=== PATIENT | male | born 1990 | race Caucasian/White ===

== ENCOUNTER → 2019-11-18 17:37 | Outpatient (CLI) | payer MEDICAID, SELFPAY ==
[2019-11-20 08:40] LABS: Covid-19 Nasal PCR Sendout UK Not Detected
--- NOTE | 2019-11-20 18:38 | PC.NURSE ---
PTS IDENTITY VERIFIED AND RESULTS GIVEN
== END ==
PROVIDERS: Visit Provider Nurse Practitioner Family
DX: Z03.818 Encounter for observation for suspected exposure to other biological agents ruled out (principal)
CPT/HCPCS: U0003

== ENCOUNTER 2019-12-19 10:17 | Emergency (ER) | payer MEDICAID, SELFPAY ==
[2019-12-19 10:34] VITALS: BP 119/68; PULSE 72; RESP 19; TEMP 36.9; O2SAT 98; BMI 22.0
--- NOTE | 2019-12-19 10:45 | HMH.EDUTC ---
[facility] [place] Disposition Clinical Impression: Encounter for laboratory testing for COVID-19 virus Disposition: Home, Self-Care Condition on Discharge: Good Instructions: Preventing the Spread of Coronavirus Discharge Instructions Additional Instructions: *Monitor Temp, Over the counter Motrin or Tylenol as directed/as needed Tylenol every 4 hours and Motrin every 6 hours (as long as your family doctor has told you that you can take it) for fever or pain. and straight to ER if unable to lower temp less than 101.0 after medication given *Warm salt water gargles may help to soothe the throat *Throat Lozenges *Warm fluids like tea with honey may help to soothe the throat *Sleep elevated *Humidifier/Vaporizer *Flonase 2 sprays in each nostril daily but be aware that it may take 2-3 days before you notice improvement Your throat swab was sent for culture. Those results are typically sent to your primary care. Be sure to follow up in 2-3 days with your family doctor/primary care physician if no improvement so they can review those result and treat if necessary. If you don?t have a primary care doctor, I recommend you get one but in the mean time, you will have to return to a walk in clinic Follow up IMMEDIATELY for new or worsening symptoms or no Noticeable improvement over the next 48-72 hours. 911 for difficulty breathing or swallowing You was tested for today for COVID19 your test result should be back later this evening, you may call back later this evening to see if your test results are back and the result You was given a handout with instructions for Self Quarantine and Self isolation for while you wait on test results and what to do if they are positive Referrals: PCP,No [Primary Care Provider] - As needed Forms: Work/School Release Time of Disposition: 11:01 Medical Decision Making - Darinel Inquiry Pt receiving controlled substance: No Darinel was queried for this patient: No Vital Signs: 12/19/19 10:34 12/19/19 11:05 Temperature 98.4 F 98.4 F Temperature Source Oral Pulse Rate 72 Pulse Rate [Right Brachial] 72 Respiratory Rate 19 19 Blood Pressure 119/68 Blood Pressure [Right Arm] 119/68 Blood Pressure Mean [Right Arm] 85 Blood Pressure Source [Right Arm] Automatic Cuff Blood Pressure Position [Right Arm] Sitting 02 Sat by Pulse Oximetry 98 Oxygen Delivery Method Room Air [facility] [place] HPI - General Stated complaint: resp issues,low grade fever Time Seen by Provider: 12/19/19 10:45 Mode of Arrival: Ambulatory Source of Information: Patient Limitations: No Limitations Description of Symptoms (Recalled from Triage Doc. by RN): PATIENT C/O COUGH AND HEADACHE. HE IS REQUESTING A COVID TEST BECAUSE HIS GIRLFRIEND'S DAUGHTER'S TEACHER WAS POSITIVE HEENT Symptoms (Recalled from RN notes): Yes Resp Symptoms (Recalled from RN notes): Yes Skin Symptoms (Recalled from RN notes): No MS Symptoms (Recalled from RN notes): No Functional Status (Recalled from RN notes): WNL - History of Present Illness Provider Complaint: Patient states that last week his girlfriends daughter is in daycare and States that child came home with what they thought was a cold then the daycare informed them that a teacher tested positive States since then he has been having body aches, chills, sore throat and nasal congestion and feeling achy all over so he came in to get tested for COVID - Related Data Home Medications Medication Instructions Recorded Confirmed No Known Home Medications 12/19/19 12/19/19 Allergies Allergy/AdvReac Type Severity Reaction Status Date / Time amoxicillin [From Augmentin] Allergy Verified 12/19/19 10:38 clavulanic acid Allergy Verified 12/19/19 10:38 [From Augmentin] - Worker's Comp Is this a Worker's Comp case?: No [facility] History - Hepatitis A Screen Drug use history?: No High risk sexual behaviors?: No History of sexually transmitted infection?: No Currently employed?: No Childc
[2019-12-19 11:05] VITALS: BP 119/68; PULSE 72; RESP 19; TEMP 36.9; O2SAT 98
--- NOTE | 2019-12-19 15:57 | PC.NURSE ---
PT NOTIFIED OF POSITIVE COVID RESULT
== END 2019-12-19 11:08 | disposition home or self-care (01) ==
PROVIDERS: Emergency Provider Nurse Practitioner
DX: U07.1 COVID-19 (principal); Z88.1 Allergy status to other antibiotic agents
CPT/HCPCS: 99201; U0003

== ENCOUNTER 2022-08-24 21:41 | Emergency (ER) | payer OTHER, SELFPAY ==
[2022-08-24 21:51] VITALS: BP 134/88; PULSE 77; RESP 14; TEMP 36.8; O2SAT 99; BMI 18.2
--- NOTE | 2022-08-24 21:56 | CT_ITS ---
PROCEDURE INFORMATION: Exam: CT Abdomen And Pelvis With Contrast Exam date and time: 08/24/2022 10:38 PM Age: 32 years old Clinical indication: Abdominal pain; Additional info: Abd pain TECHNIQUE: Imaging protocol: Computed tomography of the abdomen and pelvis with contrast. Radiation optimization: All CT scans at this facility use at least one of these dose optimization techniques: automated exposure control; mA and/or kV adjustment per patient size (includes targeted exams where dose is matched to clinical indication); or iterative reconstruction. Contrast material: ISOVUE; Contrast volume: 75 ml; Contrast route: IV; REPORTING DATA: Count of CT and Cardiac NM exams in prior 12 months: This patient has received 0 known CTs and 0 known cardiac nuclear medicine studies in the 12 months prior to the current study. COMPARISON: No relevant prior studies available. FINDINGS: Liver: Normal. No mass. Gallbladder and bile ducts: Normal. No calcified stones. No ductal dilation. Pancreas: Normal. No ductal dilation. Spleen: Normal. No splenomegaly. Adrenal glands: Normal. No mass. Kidneys and ureters: Normal. No hydronephrosis. Stomach and bowel: Mild sigmoid wall thickening coronal image 1001/32 and axial image 3/73. Normal small bowel gas pattern. Prominent seminal vesicles axial image 3/80. Appendix: Normal appendix. Intraperitoneal space: Unremarkable. No free air. No significant fluid collection. Vasculature: Unremarkable. No abdominal aortic aneurysm. Lymph nodes: Unremarkable. No enlarged lymph nodes. Urinary bladder: Unremarkable as visualized. Reproductive: See Stomach and bowel finding. Bones/joints: Unremarkable. No acute fracture. Soft tissues: Unremarkable. IMPRESSION: 1. No free air or fluid or adenopathy. 2. No evidence for obstruction. 3. Mild sigmoid wall thickening. This could be further evaluated if clinically indicated with oral and or rectal contrast CT. 4. Normal appendix. 5. Normal small bowel gas pattern. 6. Prominent seminal vesicles . Recommend clinical correlation.
[2022-08-24 22:00] VITALS: BP 125/95; PULSE 93; O2SAT 98
[2022-08-24 22:01] LABS: Microscopic, Urine URINE MICROSCOPIC (MICROSCOPIC)
--- NOTE | 2022-08-24 22:01 | PC.NURSE ---
Dr. Rodriguez at
--- NOTE | 2022-08-24 22:02 | HMH.EDABDPAI ---
Discharge Plan Disposition Patient Disposition: Home, Self-Care Prescriptions Prescriptions: No Action No Known Home Medications Referrals Follow up/Referrals: Provider,Referral, MD [Primary Care Provider] - See instructions Clinical Impressions Clinical Impression: Acute flank pain Instructions Patient Instructions: DI for Flank Pain Discharge ED Provider: Jennifer (ED)Keon Abdominal Pain HPI General Chief Complaint: Abdominal Pain Stated Complaint: back pain Time Seen by Provider: 08/24/22 21:50 Mode of Arrival: Family Vehicle Source of Information: Patient and Medical Record Limitations: No Limitations Description of Symptoms (Recalled from ER Triage Doc. by RN): 32 yo male presents with cc abd pain that began suprapubic bilaterally about a month ago and that radiates up into his upper quadrants bilaterally, and now is wrapping around into my back on both sides . No previous history like this according to his report or mention of abd surgeries. Last bm approx 2 hours [employer] and normal. Denies any dysuria, hematuria. Nauseated. Denies vomiting. History of Present Illness HPI narrative: over the last few weeks has suprapubic pain and bilat back pain - no fever/rash or trauma - no hematuria - had colonoscopy a few months ago MD complaint: flank pain Onset (ago): week(s) Consistency: intermittent Location: suprapubic Severity: moderate Associated symptoms: nausea and chills Related Data Home Medications Medication Instructions Recorded Confirmed No Known Home Medications 12/19/19 08/24/22 Allergies Allergy/AdvReac Type Severity Reaction Status Date / Time amoxicillin [From Augmentin] Allergy Verified 12/19/19 10:38 clavulanic acid Allergy Verified 12/19/19 10:38 [From Augmentin] [facility] Disclaimer: The information contained in this section may have been updated after the patient was seen, as this information can be updated by other users. Social History Smoking Status: Unknown if ever smoked alcohol intake: never current occupational status: other Travel in the last 8 weeks: None ROS Obtained: Yes All systems reviewed & no additional complaints except as documented Physical Exam General General appearance: alert Head Head exam: normocephalic Eye Eye exam: Present PERRL and EOMI ENT ENT exam: Present mucous membranes moist Neck Neck exam: Present trachea midline Respiratory Respiratory exam: Present normal lung sounds bilaterally; Absent respiratory distress Cardiovascular Cardiovascular exam: Present regular rate Abdominal Exam Abdominal exam: Present soft; Absent tenderness, guarding or rebound Extremities Exam Extremities exam: Present full ROM Back Exam Back exam: Absent CVA tenderness (R) or CVA tenderness (L) Neurological Exam Neurological exam: Present alert, oriented X3 and CN II-XII intact; Absent motor sensory deficit Psychiatric Psychiatric exam: Present normal affect Skin Skin exam: Absent rash Medical Decision Making Medical Records Medical records reviewed: Yes I reviewed the patient's medical records. Darinel Inquiry Pt receiving controlled substance: No Vital Signs: 08/24/22 21:51 08/24/22 22:00 08/24/22 23:01 Temperature 98.2 F Temperature Source Oral Pulse Rate 93 H 64 Pulse Rate [Right Brachial] 77 Respiratory Rate 14 Blood Pressure 125/95 H 123/71 Blood Pressure [Right Arm] 134/88 Blood Pressure Mean [Right Arm] 103 Blood Pressure Source [Right Arm] Automatic Cuff Blood Pressure Position [Right Arm] Sitting 02 Sat by Pulse Oximetry 99 98 98 Oxygen Delivery Method Room Air Room Air Room Air 08/24/22 23:30 08/25/22 00:00 08/25/22 00:30 Temperature Temperature Source Pulse Rate 62 57 L 60 Pulse Rate [Right Brachial] Respiratory Rate Blood Pressure 105/63 L 103/66 L 104/70 L Blood Pressure [Right Arm] Blood Pressure Mean [Right Arm] Blood Pressure Source [Right Arm]
[2022-08-24 22:07] LABS: Appearance,Urine CLEAR (Clear); Bilirubin,Urine Negative (Negative); Blood, Urine 1+ (Negative); Color,Urine YELLOW (Yellow); Glucose,Urine (UA) Negative (Negative); Ketones,Urine Negative (Negative); Leukocyte Esterase,Urine Negative (Negative); Nitrate,Urine Negative (Negative); PH,Urine 5.5 (5.0-8.5); Protein,Urine Negative (Negative); Specific Gravity, Urine >= 1.030 (1.005-1.030); Urobilinogen,Urine 0.2 EU/dl (0.2)
[2022-08-24 22:09] LABS: Basophils % 0.5 % (0.1-2.0); Eosinophils % 0.4 % (0.1-12.0); Hematocrit 47.8 % (42.0-52.0); Hemoglobin 15.8 g/dL (14.1-18.0); Lymphocytes # 2.3 K/mm3 (0.7-4.5); Lymphocytes % 35.2 % (10-50); Mean Corpuscular HGB Conc 33.1 g/dL (31.8-35.4); Mean Corpuscular Hemoglobin 29.9 pg (27.0-31.2); Mean Corpuscular Volume 90.4 fl (80-94); Mean Platelet Volume 7.6 fl (7.4-10.4); Monocytes # 0.5 K/mm3 (0.1-1.0); Monocytes % 7.3 % (1.7-9.3); Neutrophils # 3.7 K/mm3 (1.8-7.8); Neutrophils % 56.5 % (37.0-80.0); Platelet Count 346 K/mm3 (142-424); Red Blood Count 5.29 M/mm3 (4.60-6.20); Red Cell Distribution Width 12.7 % (11.5-17.5); White Blood Count 6.6 K/mm3 (4.8-10.8)
[2022-08-24 22:10] LABS: Alanine Aminotransferase 29 U/L (12-78); Albumin/Globulin Ratio 1.7 (1.1-1.8); Alkaline Phosphatase 59 U/L (38-126); Amylase 122 U/L (30-110); Anion Gap 16.3 mEq/L (5-15); Aspartate Amino Transferase 38 U/L (17-59); Blood Urea Nitrogen 23 mg/dl (9-20); Calcium 9.5 mg/dl (8.4-10.2); Carbon Dioxide 30 mmol/L (22.0-30.0); Chloride 97 mmol/L (98-107); Creatinine Clearance Estimated 83 mL/min (50-200); Estimated Glomerular Filt Rate 88 ml/min (>60); GFR (African American) 106 ML/MIN (>60); Glucose 92 mg/dl (74-100); Lipase 115 U/L (23-300); Potassium 4.3 mmoL/L (3.5-5.1); Sodium 139 mmol/L (136-145)
[2022-08-24 22:20] LABS: Barbiturates Screen,Urine Negative ng/ml (<200); Benzodiazepines Screen,Urine Negative ng/ml (<200)
[2022-08-24 22:21] LABS: Amphetamine/Metha Screen,Urine Negative ng/ml (<1000)
[2022-08-24 22:22] LABS: Cannabinoid Screen,Urine Positive ng/ml (<50); Cocaine Screen,Urine Negative ng/ml (<300)
[2022-08-24 22:23] LABS: Methadone Screen,Urine Negative ng/ml (<300); Opiate Screen,Urine Negative ng/ml (<300)
[2022-08-24 22:24] LABS: Bacteria,Urine Trace /lpf; Mucus,Urine 1+ /lpf; Phencyclidine Screen,Urine Negative ng/ml (<25); RBC,Urine Occasional #/hpf (0-3); Squamous Epithelial Cell,Urine Occasional #/hpf (0-5)
[2022-08-24 22:25] LABS: C-Reactive Protein < 0.3 mg/L (0-4)
[2022-08-24 22:30] LABS: Procalcitonin 0.058 ng/mL (0.0-2.0)
--- NOTE | 2022-08-24 22:34 | PC.NURSE ---
Pt gone to RAD via wheelchair
--- NOTE | 2022-08-24 22:45 | PC.NURSE ---
PT back to room from [facility]
[2022-08-24 23:01] VITALS: BP 123/71; PULSE 64; O2SAT 98
[2022-08-24 23:08] LABS: Erythrocyte Sedimentation Rate 3 mm/hr (0-15)
[2022-08-24 23:30] VITALS: BP 105/63; PULSE 62; O2SAT 96
[2022-08-25] VITALS: BP 103/66; PULSE 57; O2SAT 97
[2022-08-25 00:30] VITALS: BP 104/70; PULSE 60; O2SAT 97
[2022-08-25 01:00] VITALS: BP 109/71; PULSE 49; O2SAT 97
--- NOTE | 2022-08-25 01:22 | PC.NURSE ---
Dr. Rodriguez at [facility] updating pt of results
[2022-08-25 01:41] VITALS: BP 141/64; PULSE 77; RESP 19; TEMP 36.8; O2SAT 98
== END 2022-08-25 01:48 | disposition home or self-care (01) ==
PROVIDERS: Emergency Provider Emergency Medicine
DX: R10.30 Lower abdominal pain, unspecified (principal); R10.11 Right upper quadrant pain; R10.12 Left upper quadrant pain; M54.9 Dorsalgia, unspecified
CPT/HCPCS: 74177; 80053; 80305; 81001; 82150; 83690; 84145; 85025; 85651; 86140; 96361; 96374; 99284; 99285; J0131; Q9967